=== PATIENT | male | born 1945 | race Asian ===

== ENCOUNTER 2018-05-19 02:20 | Inpatient (IN) | payer OTHER ==
[~2018-05-19] VITALS: Ht 170.2 cm; Wt 74.8 kg
[2018-05-19] VITALS (7 sets, daily range): BP systolic 123–179; BP diastolic 57–70; Ht 170.2 cm; Wt 74.8 kg
[2018-05-19 03:41] LABS: BASOPHIL % 0.5 % (0-2); PLATELET COUNT 307 x10^3mcL (130-400)
[2018-05-19 04:00] LABS: ALKALINE PHOSPHATASE 57 U/L (46-116); ALT/SGPT 8 U/L (16-63); AST/SGOT 11 U/L (15-37); BILIRUBIN TOTAL 0.5 mg/dL (0.20-1.00); CALCIUM 8.5 mg/dL (8.5-10.1); CARBON DIOXIDE 24.4 mmol/L (21-32); CHLORIDE SERUM 102 mmol/L (98-107); CREATININE SERUM 1.4 mg/dL (0.7-1.3); GLUCOSE SERUM 150 mg/dL (74-106); POTASSIUM SERUM 3.9 mmol/L (3.5-5.1); SODIUM SERUM 136 mmol/L (136-145); TOTAL PROTEIN, SERUM 7.1 g/dL (6.4-8.2)
[2018-05-19 04:05] LABS: ALBUMIN 3.2 g/dL (3.4-5.0)
[2018-05-19] MEDS ORDERED: RANEXA1000 M2 PO (04:36)
[2018-05-19] MEDS ORDERED: LABETALOL HYDR300 MG PO (04:36)
[2018-05-19] MEDS ORDERED: ASPIR 8181 MG PO (04:37)
[2018-05-19] MEDS ORDERED: CLONIDINE0.2 M1 (04:37)
[2018-05-19 08:30] LABS: CHOLESTEROL/HDL RATIO 3.4; MAGNESIUM 1.8 mg/dL (1.8-2.4)
[2018-05-19 08:50] LABS: FREE T4 1.11 ng/dL (0.76-1.46); FREE THYROXINE INDEX 2.4 ug/dL (1.4-4.5)
[2018-05-19 12:30] LABS: T3 TOTAL 0.81 ng/mL
[2018-05-19 23:49] LABS: UA SPECIFIC GRAVITY 1.025 (1.005-1.035); microscopic required? YES; urine erythrocyte NEGATIVE (NEGATIVE)
[2018-05-20] VITALS (10 sets, daily range): BP systolic 102–166; BP diastolic 53–81
[2018-05-20 06:28] LABS: CALCIUM 8.5 mg/dL (8.5-10.1); CARBON DIOXIDE 25.8 mmol/L (21-32); CHLORIDE SERUM 104 mmol/L (98-107); CREATININE SERUM 1.4 mg/dL (0.7-1.3); GLUCOSE SERUM 119 mg/dL (74-106); SODIUM SERUM 137 mmol/L (136-145)
[2018-05-20 06:37] LABS: BASOPHIL % 0.4 % (0-2); PLATELET COUNT 309 x10^3mcL (130-400); RED CELL DISTRIBUTION WIDTH 13.2 % (11.5-14.5)
[2018-05-20] MEDS ORDERED: ADA30 PO (15:31)
== END 2018-05-20 18:07 | disposition home or self-care (01) | DRG 308 ==
LOC: ED 02:20 → DU 04:32
PROVIDERS: Emergency Medicine; Internal Medicine
DX: R00.1 Bradycardia, unspecified (principal); N17.0 Acute kidney failure with tubular necrosis; E44.0 Moderate protein-calorie malnutrition; D68.69 Other thrombophilia; I16.0 Hypertensive urgency; E11.65 Type 2 diabetes mellitus with hyperglycemia; R80.9 Proteinuria, unspecified; E78.5 Hyperlipidemia, unspecified; Z79.82 Long term (current) use of aspirin; Z68.26 Body mass index [BMI] 26.0-26.9, adult; Z87.891 Personal history of nicotine dependence; T44.8X5A Adverse effect of centrally-acting and adrenergic-neuron-blocking agents, initial encounter; Y92.018 Other place in single-family (private) house as the place of occurrence of the external cause
CPT/HCPCS: 83880; 84439; J3490; J7040; Q0092